=== PATIENT | female | born 1940 | race Caucasian/White ===

== ENCOUNTER 2024-02-02 14:29 | Emergency (ER) | payer MEDICARE ==
[2024-02-02 14:57] VITALS: BP 180/84; PULSE 83; RESP 16; TEMP 97.7
--- NOTE | 2024-02-02 15:04 | ED ---
Lower Extremity Injury HPI - General Chief Complaint: Extremity Injury, Lower Stated Complaint: sore L hip Time Seen by Provider: 02/02/24 14:52 Source: patient, RN notes reviewed Mode of arrival: ambulatory Limitations: no limitations - History of Present Illness Initial Comments: This is an 84-year-old female who presents to the emergency department with chief complaint of left hip pain. She states that she fell roughly a week ago when she was helping her who fell on the ground. Patient is able to ambulate yet has pain when bearing weight only on her left leg. Patient was seen this afternoon at [facility] urgent care where a x-ray of the left hip and AP pelvis was ordered with an impression of moderate hip joint space narrowing and a compression fracture of L2 and L3 noted. She was noted by urgent care report to the emergency department for further evaluation. She denies paresthesias, bladder or bowel incontinence, saddle anesthesias. No other acute bony complaints. - Related Data Previous Rx's Medication Instructions Recorded Ketorolac [Toradol] 10 mg PO Q8HR #15 tab 02/02/24 Allergies Allergy/AdvReac Type Severity Reaction Status Date / Time No Known Allergies Allergy Verified 02/02/24 14:57 Review of Systems ROS Statement: Those systems with pertinent positive or pertinent negative responses have been documented in the HPI. ROS Other: All systems not noted in ROS Statement are negative. Past Medical History Past Medical History: No Reported History History of Any Multi-Drug Resistant Organisms: None Reported Past Surgical History: No Surgical Hx Reported Past Psychological History: No Psychological Hx Reported Smoking Status: Never smoker Past Alcohol Use History: None Reported Past Drug Use History: None Reported General Exam - General Exam Comments Initial Comments: Visual Physical Exam Vital signs reviewed General: Well-appearing, nontoxic, no acute distress. Head: Normocephalic, atraumatic Eyes: PERRLA, EOMI ENT: Airway patent Chest: Nonlabored breathing Skin: No visual rash, normal skin tone Neuro: Alert and oriented 3 Musculoskeletal: No gross abnormalities Limitations: no limitations General appearance: alert, in no apparent distress Head exam: Present: atraumatic, normocephalic, normal inspection Eye exam: Present: normal appearance, PERRL, EOMI. Absent: scleral icterus, conjunctival injection, periorbital swelling ENT exam: Present: normal exam, mucous membranes moist Neck exam: Present: normal inspection. Absent: tenderness, meningismus, lymphadenopathy Respiratory exam: Present: normal lung sounds bilaterally. Absent: respiratory distress, wheezes, rales, rhonchi, stridor Cardiovascular Exam: Present: regular rate, normal rhythm, normal heart sounds. Absent: systolic murmur, diastolic murmur, rubs, gallop, clicks GI/Abdominal exam: Present: soft, normal bowel sounds. Absent: distended, tenderness, guarding, rebound, rigid Left Hip exam: Present: normal inspection. Absent: full ROM, tenderness, swelling, laceration, ecchymosis, erythema Back exam: Present: normal inspection, full ROM (Pain with active flexion and extension of back). Absent: tenderness Neurological exam: Present: alert, oriented X3, CN II-XII intact Psychiatric exam: Present: normal affect, normal mood Skin exam: Present: warm, dry, intact, normal color. Absent: rash Course Vital Signs 02/02/24 14:54 Temperature 97.7 F Pulse Rate 83 Respiratory 16 Rate Blood Pressure 180/84 O2 Sat by Pulse 98 Oximetry Medical Decision Making - Medical Decision Making I completed the quick note portion of this chart signed Chelsie Garza PA-C Was pt. sent in by a medical professional or institution ([facility] Artis, PARAGLIDING INSTRUCTOR, urgent care, hospital, or retirement...) When possible be specific @ -patient was referred by [facility] urgent care to report to the emergency department for further evaluation of compression fractures noted of the L2 and L3 vertebrae found on x-ray of the AP pelvis and lumbar spine. Did you speak to anyone other than the patient for history (EMS, parent, family, police, friend...)? What history was obtained from this source @ -No Did you review nursing and triage notes (agree or disagree)? Why? @ -I reviewed and agree with nursing and triage notes Were old charts reviewed (outside hosp., previous admission, EMS record, old EKG, old radiological studies, urgent care reports/EKG's, retirement records)? Report findings @ -No old charts were reviewed Differential Diagnosis (chest pain, altered mental status, abdominal pain women, abdominal pain men, vaginal bleeding, weakness, fever, dyspnea, syncope, headache, dizziness, GI bleed, back pain, seizure, CVA, palpatations, mental he alth, musculoskeletal)? @ -Differential Musculoskeletal Muscular strain, contusion, ligament sprain, fracture, arthritis, septic arthritis, bursitis, cellulitis, muscle spasm, nerve compression, DVT, arterial occlusion, herpes zoster, electrolyte abnormality, tumor.... This is not meant to be in all inclusive list EKG interpreted by me (3pts min.). @ -None X-rays interpreted by me (1pt min.). @ -None done CT interpreted by me (1pt min.). @ -CT lumbar spine without contrast reveals multilevel osteoporotic central compression fractures of the L1-L5 CT of the pelvis without contrast reveals no acute left hip fracture. U/S interpreted by me (1pt. min.). @ -None done What testing was considered but not performed or refused? (CT, X-rays, U/S, labs)? Why? @ -None What meds were considered but not given or refused? Why? @ -patient was offered pain medication but she declined at this time due to pain being tolerable. Did you discuss the management of the patient with other professionals (professionals i.e. , PA, PARAGLIDING INSTRUCTOR, lab, RT, psych nurse, social problems specialist, park interpretive ranger, teacher, financial aids officer, showcase trimmer)? Give summary @ -No Was smoking cessation discussed for >3mins.? @ -No Was critical care preformed (if so, how long)? @ -No Were there social determinants of health that impacted care today? How? (Homelessness, low income, unemployed, alcoholism, drug addiction, tra nsportation, low edu. Level, literacy, decrease access to med. care, care home, rehab)? @ -No Was there de-escalation of care discussed even if they declined (Discuss DNR or withdrawal of care, Hospice)? DNR status @ -No What co-morbidities impacted this encounter? (DM, HTN, Smoking, COPD, CAD, Cancer, CVA, ARF, Chemo, Hep., AIDS, mental health diagnosis, sleep apnea, morbid obesity)? @ -None Was patient admitted / discharged? Hospital course, mention meds given and route, prescriptions, significant lab abnormalities, going to OR and other pertinent info. @ -Discharged. 84-year-old female with left hip pain. On examination patient has full range of motion of bilateral lower extremities and back. She has pain with active movements of the spine including flexion extension. Additionally patient has pain once fully bearing weight of the left foot. Due to x-ray findings at urgent care patient will be sent for a CT image of the back and hip for further evaluation, patient is agree with this plan. She was offered pain medication but she declined. CT imaging of the pelvis and lumbar spine no acute injury noted, lumbar spine reveals multilevel osteoporotic central compression fractures. Results reviewed with the patient. All questions answered at bedside, and strict return parameters discussed with the patient where she verbalized agreement. Stable for discharge. Case also my attending Dr. Stacy Undiagnosed new problem with uncertain prognosis? @ -No Drug Therapy requiring intensive monitoring for toxicity (Heparin, Nitro, Insulin, Cardizem)? @ -No Were any procedures done? @ -No Diagnosis/symptom? @ -Left hip pain Acute, or Chronic, or Acute on Chronic? @ -Acute Uncomplicated (without systemic symptoms) or Complicated (systemic symptoms)? @ -uncomplicated Side effects of treatment? @ -No Exacerbation, Progression, or Severe Exacerbation? @ -No Poses a threat to life or bodily function? How? (Chest pain, [place], [place], pneumonia, PE, COPD, DKA, ARF, appy, cholecystitis, CVA, Diverticulitis, Homicidal, Suicidal, threat to staff... and all critical care pts) @ -No Disposition Clinical Impression: Left hip pain, Osteoporotic compression fracture of spine Disposition: HOME SELF-CARE Condition: Good Instructions (If sedation given, give patient instructions): Hip Pain (ED) Additional Instructions: Return to the emergency department if symptoms worsen or improve. Take prescribed medication as needed for pain. Prescriptions: Ketorolac [Toradol] 10 mg PO Q8HR #15 tab Is patient prescribed a controlled substance at d/c from ED?: No Referrals: None,Stated [Primary Care Provider] - 1-2 days Time of Disposition: 18:16
--- NOTE | 2024-02-02 16:35 | CT ---
EXAMINATION TYPE: CT lumbar spine wo con CT DLP: Combined DLP of 777.1 mGycm, Automated exposure control for dose reduction was used. DATE OF EXAM: 02/02/2024 3:36 PM COMPARISON: None.. CLINICAL INDICATION:Female, 84 years old with history of XR today w/ impression of L2 L3 comp fx; PH[facility] , XR today w/ impression of L2 L3 comp fx. This radiograph is not available for comparison, apparentl y done at some other facility. TECHNIQUE: Multiple axial images were obtained from the midportion of T11 through the sacroiliac ruthie nts. Soft tissue and bone windows in coronal and sagittal planes were obtained and reviewed. 3-D ref ormats of the bones were created on a separate workstation and submitted for review. Contrast used: mL of , (None, if empty). Oral contrast used: (None, if empty). FINDINGS: Alignment: There are 5 lumbar type vertebral bodies within the near normal alignment. Bone: There are endplate compression deformities in the inferior endplate of L1, the superior and in ferior endplates of L2 and L3 at the superior endplates of L4 and L5. Most likely osteoporotic centra l compression deformities. Vacuum disc phenomenon is seen at these levels. IMPRESSION: 1. Multilevel osteoporotic central compression fractures
--- NOTE | 2024-02-02 17:07 | CT ---
EXAMINATION TYPE: CT pelvis wo con CT DLP: Combined DLP of 777.1 mGycm, Automated exposure control for dose reduction was used. DATE OF EXAM: 02/02/2024 3:45 PM COMPARISON: CT abdomen pelvis most recent from CLINICAL INDICATION:Female, 84 years old with history of fall, left hip pain; Fall, left hip pain. TECHNIQUE: Axial CT pelvis wo con;Sagittal and coronal reformats were created on a separate workstat ion. Contrast used: mL of , (none if empty) Oral contrast used: without Oral Contrast (none if empty) PELVIS MUSCULOSKELETAL: No acute osseous abnormalities. No left hip fracture is appreciated. There are super ior and inferior osteoporotic compression fracture deformities of L5. SOFT TISSUE/ABDOMINAL WALL: Unremarkable IMPRESSION: 1. No acute left hip fracture.
== END 2024-02-02 18:40 | disposition home or self-care (01) ==
LOC: EC 14:29
DX: M80.08XA Age-related osteoporosis with current pathological fracture, vertebra(e), initial encounter for fracture (principal); W19.XXXA Unspecified fall, initial encounter
CPT/HCPCS: 72131; 72192; 99283

== ENCOUNTER → 2024-08-03 | Outpatient (CLI) | payer MEDICARE ==
--- NOTE | 2024-08-03 14:09 | BD ---
EXAMINATION TYPE: Axial Bone Density DATE OF EXAM: 08/03/2024 CLINICAL HISTORY: 84 years old Female. ICD-10 CODE: M81.0 AGE-RELATED OSTEOPOROSIS W/O CURRENT PATHO LO , Additional History: Height: 59 in Weight: 144 lbs FRAX RISK QUESTIONS: History of Fracture in Adulthood: l spine age 84 RISK FACTORS HISTORY OF: Spine Fracture: l spine fx age 84 EXAM MEASUREMENTS: Bone mineral densitometry was performed using the Atter[employer] System. Bone mineral density about the R hip (g/cm2): 0.663 Bone mineral density about the L hip (g/cm2): 0.652 T Score values are as follows: -----R Neck: -3.1 -----L Neck: -2.7 -----R Total: -2.7 -----L Total: -2.8 Z Score values are as follows: -----R Neck: -0.7 -----L Neck: -0.3 -----R Total: -0.4 -----L Total: -0.5 Bone mineral density has: Decreased -19.3% since study of: 11/06/2005 Bone mineral density about the L Wrist (g/cm2): 0.422 T Score values are as follows: -----Dist. R+U: -3.8 -----Prox. R+U: -3.9 -----Radius total: -4.2 Z Score values are as follows: -----Dist. R+U: -0.5 -----Prox. R+U: -0.7 -----Radius total: -1.0 Bone mineral density baseline FRAX%s: The graph provided illustrates a 33.2% chance for a major osteoporotic fx and a 12.9% chance for the hips probability for fx in 10 years time. IMPRESSION: Osteoporosis (T Score less than -2.5). There is increased fracture risk and therapy is usually indicated based on age. Re-Screen 1-2 years. NOTE: T-SCORE=SD OF THE YOUNG ADULT MEAN. [facility], Workstation: 3, 08/03/2024 2:07 PM
== END | disposition home or self-care (01) ==
LOC: RADBDWWP 11:00
PROVIDERS: ATTEND Family Medicine
DX: M81.0 Age-related osteoporosis without current pathological fracture (principal)
CPT/HCPCS: 77080

== ENCOUNTER → 2024-08-30 | Outpatient (CLI) | payer MEDICARE ==
--- NOTE | 2024-08-30 13:49 | CT ---
EXAMINATION TYPE: CT shoulder LT wo con CT DLP: 254.2 mGycm, Automated exposure control for dose reduction was used. DATE OF EXAM: 08/30/2024 1:40 PM COMPARISON: None CLINICAL INDICATION:Female, 84 years old with history of S42.292A Left shoulder; PHH, Lt shoulder fx TECHNIQUE: Axial images were obtained of the left shoulder without the use of IV contrast. Additiona l coronal and sagittal reformatted images and soft tissue and bone window were obtained for review. 3 -D reconstruction was created on a separate workstation. FINDINGS: Acute comminuted mildly displaced fracture of the left proximal humerus at the surgical nec k with extension throughout the humeral head. No dislocation. There is a small joint effusion. AC ruthie nt is intact with capsular hypertrophy. Remote left lateral third and fourth rib fractures. Fracture lines are no longer visualized. No significant soft tissue swelling. No focal muscular atrophy or patricia ma is identified. No radiopaque foreign body identified. The visualized portions of the lung are unre markable. Coronary artery calcifications. IMPRESSION: 1. Acute comminuted left proximal humerus fracture at the surgical neck with extension throughout th e humeral head. No dislocation. 2. Removal left lateral third and fourth rib fractures. [facility], , 08/30/2024 1:46 PM
== END | disposition home or self-care (01) ==
LOC: RADCTMAIN 12:51
PROVIDERS: ATTEND Orthopaedic Surgery
DX: S42.292A Other displaced fracture of upper end of left humerus, initial encounter for closed fracture (principal); W19.XXXA Unspecified fall, initial encounter